=== PATIENT | female | born 1970 | race Caucasian/White ===

== ENCOUNTER 2017-06-12 17:15 | Inpatient (IN) | payer OTHER ==
[~2017-06-12] VITALS: Ht 175.3 cm; Wt 140.0 kg
[~2017-06-12 17:15] MED LIST: ATIV1TAB7 PO; BENZ5TA PO; CELE10TA PO; CELE40TA PO; HYDR10T PO; NO HOME MEDS; RISP1TAB3 PO; THIO10TA PO; TRAZ-136 PO; TRAZ50TA2 PO
[2017-06-12] MEDS ORDERED: VRAY4.5C PO (17:38)
[2017-06-12] MEDS ORDERED: QUET5TAB PO (17:38)
[2017-06-12 18:56] LABS: MEAN CORPUSCULAR HEMOGLOBIN 30.2 pg (27.0-33.0); MEAN CORPUSCULAR VOLUME 91.4 fl (80.0-96.0); RED CELL DISTRIBUTION WIDTH 13.7 % (11.5-14.5); WHITE BLOOD COUNT 11.1 10^3/uL (4.0-10.0)
[2017-06-12 19:34] LABS: ALBUMIN 3.4 GM/DL (3.2-5.2); ALBUMIN/GLOBULIN RATIO 0.85 (1.00-1.93); ALKALINE PHOSPHATASE 117 U/L (45-117); ALT/SGPT 27 U/L (12-78); ANION GAP 7 MEQ/L (8-16); AST/SGOT 18 U/L (15-37); BILIRUBIN,DIRECT < 0.1 MG/DL (0.0-0.2); BILIRUBIN,TOTAL 0.3 MG/DL (0.2-1.0); BLOOD UREA NITROGEN 13 MG/DL (7-18); CALCIUM LEVEL 9.1 MG/DL (8.5-10.1); CARBON DIOXIDE LEVEL 26 MEQ/L (21-32); CHLORIDE LEVEL 106 MEQ/L (98-107); CREATININE FOR GFR 0.65 MG/DL (0.55-1.02); GLOMERULAR FILTRATION RATE > 60.0 (>58); GLUCOSE, FASTING 82 MG/DL (70-105); SODIUM LEVEL 139 MEQ/L (136-145); TOTAL PROTEIN 7.4 GM/DL (6.4-8.2)
[2017-06-12 19:45] LABS: METHADONE URINE NEGATIVE (NEGATIVE)
[2017-06-12] MEDS ORDERED: traZODone 50 MG TAB PO PRN (20:15)
[2017-06-12] MEDS ORDERED: ACETAMINOPHEN TAB 650MG DOSE (2X325MG) PO PRN (20:15)
[2017-06-12] MEDS ORDERED: MOM 30ML SUSPENSION UDC PO PRN (20:15)
[2017-06-12] MEDS ORDERED: MAALOX 30 ML SUSP *UDC PO PRN (20:15)
[2017-06-12] MEDS: PALIPERIDONE 3 MG ER TAB (INVEGA) PO SCH (21:00)
[2017-06-12] MEDS ORDERED: BENZ2TAB5 PO (21:23)
[2017-06-12] MEDS ORDERED: RISP2TAB3 PO ×2 (21:23)
[2017-06-12 21:51] VITALS: BP 117/86
[2017-06-12] MEDS ORDERED: QUEtiapine FUMARATE 25 MG TAB PO PRN (22:30)
[2017-06-12] MEDS: risperiDONE 2 MG TAB PO SCH (22:41)
[2017-06-12] MEDS: BENZTROPINE 2 MG TAB PO SCH (22:41)
[2017-06-12] MEDS: traZODone 100 MG TAB PO SCH (22:42)
[2017-06-12] MEDS: CitaloPRAM (CeleXA) 20 MG TAB PO SCH (22:42)
[2017-06-13 06:23] VITALS: BP 103/56
[2017-06-13] MEDS: BENZTROPINE 2 MG TAB PO SCH ×2 (08:38→21:38)
[2017-06-13] MEDS: risperiDONE 1 MG TAB PO SCH (08:38)
[2017-06-13] MEDS: NICOTINE 21MG/24HR 1 EA TRANSDERMAL TD SCH (08:38)
--- NOTE | 2017-06-13 08:55 | MHHPEPDOC ---
[facility] History & Physical History and Physical DATE OF ADMISSION: Jun 12, 2017 at 20:09 LEGAL STATUS AT ADMISSION: 9.39 CHIEF COMPLAINT: "I've been doing really well. I haven't been here in 4 years". Pt was last admitted in 2014. HISTORY OF THE PRESENT ILLNESS: Patient is a 46-year-old female, who has outpatient follow up in [facility]. She has been missing appointments and her therapist called in a pickle pumper order for her. In the ED she admits to hearing voices with potential suicidal thoughts (she admits to "sort of"). The voices are telling her she is the devil. She admits to being off her medication for several months and also commented, "I need to get on my meds because it is all starting again". Unfortunately our Pharmacy does not carry her primary SGA which is Vralyar (cariprazine). We will have to substitute another SGA until she is discharged. Pt has a 24 yo daughter and a 16 yo daughter. The pt lives with them as the 24 yo has custody of the 16 yo. Pt had prior admissions here in September of 2013 and July of 2015. Was able to be stabilized. Long h/o noncompliance. PSYCHIATRIC REVIEW OF SYSTEMS: Affective: calm Anxiety: mild Trauma: some pushing between her and BF but not significant Domestic violence. No sexual abuse. Psychosis: auditory hallucinations, sees floating things that are light and dark. Personally: cooperative PAST PSYCHIATRIC HISTORY: Prior Psychiatric Disorder: 3 admission to [facility]. Outpatient Treatment: [facility] Suicidal/Self injurious: none noted in prior admissions Psychotropic Medication History: Vraylar, risperidone, Seroquel, Celexa ALLERGIES: Please see below. FAMILY PSYCHIATRIC HISTORY: brother with psychiatric history of unknown type and substance abuse. Father-alcoholism, but achieved sobriety, Great Grandfather committed suicide but she does not have anymore knowledge of this event. SOCIAL HISTORY: Early Relations/development: raised by both parents in [place]. Enjoyed siblings and rode their bikes to [employer]. Happy Childhood. 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 Denies drug addiction, some experimentation when younger with marijuana. Daily smoker of tobacco products. PAST MEDICAL/SURGICAL HISTORY: History of ovarian cyst History of gestational diabetes PSHX: Tubal ligation Left knee surgery VITAL SIGNS: Temperature 98, pulse 82, respiratory rate 20, blood pressure 103/ 56 , pulse oximetry 97 % on room air. MENTAL STATUS EXAMINATION: General appearance: Patient is a 46-year old female, who is large in stature, obese, long light colored hair, disheveled, wearing hospital attire, cooperative , good eye contact Speech: spontaneous Thought processes: mostly linear, somewhat disjointed Thought content: appropriate, bothered by bad dreams Abstract reasoning and computation: fair Description of associations: good Description of abnormal or psychotic thoughts: auditory hallucinations, some visual hallucinations earlier in the day, no thoughts to harm self but is at risk due to psychosis. Judgment: poor Insight: poor Orientation: oriented to person and place Recent and remote memory: fair Attention span and concentration: fair Fund of knowledge: impaired Mood: anxious Affect: congruent DIAGNOSES: 1. paranoid schizophrenia 2. r/o Bipolar disorder 3. r/o MDD with psychotic features 4. Substance use disorder with sustained sobriety. ASSESSMENT: Pt admits to noncompliance and is agreeable to a trial of Invega Sustenna with the goal of transitioning to Invega Trinza after 4 Sustenna injections. Pt educated on difficulty in managing MT by stopping meds. Told this will not make the illness or better. In fact it can make the disorder more difficult to treat if the brain is exposed to meds and then meds are withdrawn and this happens over and over. She agrees it must be treated. Pt enjoys her job. She is proud of her daughters. She feels loved by her family. She states she is feeling better today and believes that sleep has been helpful. She reports her "bad dreams" keep her from sleeping. PROBLEM LIST: 1. altered thoughts and perceptions 2. depression 3.noncompliance INITIAL TREATMENT PLAN: 1. Patient was admitted on a 9.39 2. Complete history was obtained. 3. With patients permission, family will be contacted and database will be expanded. 4. Patients medication regimen will be reviewed and changed accordingly. 5. Patient will be provided with protected environment. 6. Patient will be treated with individual, group, and milieu therapies. 7. Patient will receive supportive psych-education. 8. Discharge planning will commence immediately. 9. Outpatient follow-up treatment will be strongly recommended. 10. The initial treatment plan will focus initially on: * see problem list ESTIMATED LENGTH OF STAY: 7-10 DAYS. TIME SPENT COUNSELING AND COORDINATING INITIAL CARE: 50 minutes. Plan: Invega Sustenna, prazosin for nightmares, prn meds for EPS and Akathesia , anxiety meds prn. Hope to give first injection tomorrow, 2nd injection Sunday with discharge next week. Pt is already asking about discharge. Laboratory Data 24H Labs Laboratory Tests 2 06/12/17 18:33: Urine Amphetamines Screen NEGATIVE, Urine Benzodiazepines Screen NEGATIVE, Urine Opiates Screen NEGATIVE, Urine Methadone Screen NEGATIVE, Urine Barbiturates Screen NEGATIVE, Urine Phencyclidine Screen NEGATIVE, Urine Cocaine Metabolite Screen NEGATIVE, Urine Cannabinoids Screen NEGATIVE 06/12/17 18:45: Anion Gap 7L, Glomerular Filtration Rate > 60.0, Calcium Level 9.1, Aspartate Amino Transf (AST/SGOT) 18, Alanine Aminotransferase (ALT/SGPT) 27, Alkaline Phosphatase 117, Total Bilirubin 0.3, Direct Bilirubin < 0.1, Total Protein 7.4 , Albumin 3.4, Albumin/Globulin Ratio 0.85L, Thyroid Stimulating Hormone (TSH) 0.617, Salicylates Level 5.8, Acetaminophen Level < 2.0L, Ethyl Alcohol Level < 0.003 CBC/BMP Laboratory Tests 06/12/17 18:45 Red Blood Count 5.00, Mean Corpuscular Volume 91.4, Mean Corpuscular Hemoglobin 30.2, Mean Corpuscular Hemoglobin Concent 33.0, Red Cell Distribution Width 13.7 Medications Scheduled (Vraylar) 4.5 Mg Cap, 4.5 MG PO QHS, (Reported) (Risperidone) 2 Mg Tab, 1 MG PO DAILY, (Reported) (Risperidone) 2 Mg Tab, 2 MG PO QHS, (Reported) Benztropine Mesylate (Benztropine Mesylate) 2 Mg Tab, 2 MG PO BID, (Reported) Citalopram Hydrobromide (Celexa) 40 Mg Tab, 40 MG PO QHS, (Reported) Scheduled PRN Quetiapine Fumerate (Quetiapine Fumarate) 50 Mg Tab, 25 MG PO QHS PRN for ANXIETY/AGITATION, (Reported) Trazodone HCl (Trazodone HCl) 100 Mg Tab, 100 MG PO QHS PRN for SLEEP, (Reported ) Allergies Coded Allergies: No Known Allergies (Unverified , 04/19/13) Any Reynolds Jun 13, 2017 08:55
--- NOTE | 2017-06-13 09:30 | HPEPDOC ---
[facility] Medical History & Physical Date of Admission Jun 12, 2017 History and Physical PCP: Dr Alatorre ATTENDING: Dr. Ramon Miles HPI: 46yoF admitted to [facility] for unspecified psychotic disorder, being medically examined today. No acute medical complaints today. Denies any fevers, chills, weakness, fatigue, ARREOLA, CP, SOB, cough, palpitations, abdominal pain, N/V/D or changes in bowel or bladder habits. 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 ROS: As noted in HPI, otherwise 11pt ROS of systems reviewed and remarkable only for LMP unknown. PE: GEN: 46yoF, appears stated age. Well-nourished, well developed. No acute distress. Alert and oriented x 3. Pleasant, interactive. HEENT: Normocephalic, atraumatic. Pupils are equal, round, and reactive to light. Extraocular movements are intact. No nystagmus appreciated. Sclera are nonicteric. Conjunctiva without injection. Nose midline. Nasal turbinates without bogginess. EACs both patent BL. TMs both visualized and clinton with good cone of light, no bulging or erythema. No facial asymmetry. Moist mucous membranes. Dentition fair. Pharynx pink and moist, no cobblestoning. Neck supple , trachea midline. No lymphadenopathy or thyromegaly appreciated. CHEST: Regular rate and rhythm, +S1, +S2 LUNGS: Clear to auscultation bilaterally. No wheezes, rales, or rhonchi. Breathing appears symmetric and easy. Patient is speaking in full sentences. No accessory muscle use. ABD: Round, soft, non-tender, non-distended. +Bowel sounds throughout. No rebound or guarding. No costovertebral angle tenderness. EXT: Pulses 2+ bilaterally dorsalis pedis and radial. No lower extremity edema appreciated. SKIN: [place], dry, warm. Capillary refill <2sec. No rashes. NEURO: Alert and oriented x 3. Cranial nerves III-XII are intact. No focal deficits appreciated. EKG: pending. A&P: 46yoF admitted to [facility] for unspecified psychotic disorder 1. Psych. Plan per Psychiatry. Obtain baseline EKG to assure the safety of psychiatric medications as they can prolong the QT interval. Check UA/urine culture. 2. Nicotine dependence. Patch available. 3. Follow up with PCP on discharge. 4. Leukocytosis. Patient is afebrile. Asymptomatic. Recheck CBC in a.m. 5. Add Hcg to admission labs. 6. Staff member Padma GAYLE present throughout exam. Vital Signs Vital Signs Date Time Temp Pulse Resp B/P (MAP) Pulse Ox O2 Delivery O2 Flow Rate FiO2 06/13/17 06:23 98.0 82 20 103/56 (72) 06/12/17 21:51 Room Air 06/12/17 21:24 97 Laboratory Data Labs 24H Laboratory Tests 2 06/12/17 18:33: Urine Amphetamines Screen NEGATIVE, Urine Benzodiazepines Screen NEGATIVE, Urine Opiates Screen NEGATIVE, Urine Methadone Screen NEGATIVE, Urine Barbiturates Screen NEGATIVE, Urine Phencyclidine Screen NEGATIVE, Urine Cocaine Metabolite Screen NEGATIVE, Urine Cannabinoids Screen NEGATIVE 06/12/17 18:45: Anion Gap 7L, Glomerular Filtration Rate > 60.0, Calcium Level 9.1, Aspartate Amino Transf (AST/SGOT) 18, Alanine Aminotransferase (ALT/SGPT) 27, Alkaline Phosphatase 117, Total Bilirubin 0.3, Direct Bilirubin < 0.1, Total Protein 7.4 , Albumin 3.4, Albumin/Globulin Ratio 0.85L, Thyroid Stimulating Hormone (TSH) 0.617, Salicylates Level 5.8, Acetaminophen Level < 2.0L, Ethyl Alcohol Level < 0.003 CBC/BMP Laboratory Tests 06/12/17 18:45 Red Blood Count 5.00, Mean Corpuscular Volume 91.4, Mean Corpuscular Hemoglobin 30.2, Mean Corpuscular Hemoglobin Concent 33.0, Red Cell Distribution Width 13.7 Home Medications Scheduled (Vraylar) 4.5 Mg Cap, 4.5 MG PO QHS (Risperidone) 2 Mg Tab, 1 MG PO DAILY (Risperidone) 2 Mg Tab, 2 MG PO QHS Benztropine Mesylate (Benztropine Mesylate) 2 Mg Tab, 2 MG PO BID Citalopram Hydrobromide (Celexa) 40 Mg Tab, 40 MG PO QHS Scheduled PRN Quetiapine Fumerate (Quetiapine Fumarate) 50 Mg Tab, 25 MG PO QHS PRN for ANXIETY/AGITATION Trazodone HCl (Trazodone HCl) 100 Mg Tab, 100 MG PO QHS PRN for SLEEP Allergies Coded Allergies: No Known Allergies (Unverified , 04/19/13) Evelyn Ellis Jun 13, 2017 09:30
[2017-06-13 11:00] LABS: CONTROL LINE HCG INT CTR LINE PRESENT
[2017-06-13 18:56] VITALS: BP 96/59
--- NOTE | 2017-06-13 21:05 | ECGEPIP ---
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
[2017-06-13] MEDS: PALIPERIDONE 3 MG ER TAB (INVEGA) PO SCH (21:38)
[2017-06-13] MEDS: CitaloPRAM (CeleXA) 20 MG TAB PO SCH (21:38)
[2017-06-13] MEDS: risperiDONE 2 MG TAB PO SCH (21:38)
[2017-06-14 07:06] VITALS: BP 130/60
[2017-06-14 07:38] LABS: BASO # 0.1 10^3/uL (0.0-0.2); BASO % 0.6 % (0.0-1.0); EOS # 0.2 10^3/uL (0.0-0.50); IMMATURE GRANULOCYTE % 0.2 % (0-0); LYMPH # 3.9 10^3/uL (1.5-4.5); LYMPH % 46.4 % (24.0-44.0); MEAN CORPUSCULAR HEMOGLOBIN 30.1 pg (27.0-33.0); MEAN CORPUSCULAR HGB CONC 32.5 g/dl (32.0-36.5); MEAN CORPUSCULAR VOLUME 92.6 fl (80.0-96.0); MONO # 0.5 10^3/uL (0.0-0.8); MONO % 6.2 % (0.0-5.0); NEUTROPHILS # 3.8 10^3/uL (1.8-7.7); NEUTROPHILS % 44.6 % (36.0-66.0); PLATELET COUNT, AUTOMATED 275 10^3/uL (150-450); RED CELL DISTRIBUTION WIDTH 13.7 % (11.5-14.5); WHITE BLOOD COUNT 8.5 10^3/uL (4.0-10.0)
[2017-06-14] MEDS: risperiDONE 1 MG TAB PO SCH (08:04)
[2017-06-14] MEDS: NICOTINE 21MG/24HR 1 EA TRANSDERMAL TD SCH (08:04)
[2017-06-14] MEDS: BENZTROPINE 2 MG TAB PO SCH ×2 (08:04→20:06)
[2017-06-14] MEDS ORDERED: PALIPERIDONE PALMITATE 234 MG/1.5 ML INJ (INVEGA SUSTENNA)(J2426) IM ONE (09:00)
--- NOTE | 2017-06-14 13:18 | MHIPNPDOC ---
[facility] Progress Note Progress Note DATE OF SERVICE: 06/14/17 HISTORY: day 3 of admission for decompensation of schizophrenia related to non- compliance with medication. VITAL SIGNS: See below. 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 MENTAL STATUS EXAMINATION: General appearance: Patient is a 46-year old female, who is large in stature, obese, long light colored hair, disheveled, wearing hospital attire, cooperative , good eye contact Speech: spontaneous Thought processes: mostly linear, somewhat disjointed Thought content: appropriate, bothered by bad dreams Abstract reasoning and computation: fair Description of associations: good Description of abnormal or psychotic thoughts: auditory hallucinations, some visual hallucinations earlier in the day, no thoughts to harm self but is at risk due to psychosis. Judgment: poor Insight: poor Orientation: oriented to person and place Recent and remote memory: fair Attention span and concentration: fair Fund of knowledge: impaired Mood: anxious Affect: congruent DIAGNOSES: 1. paranoid schizophrenia 2. Substance use disorder with sustained sobriety. ASSESSMENT:pt attended treatment planning and is aware of treatment goals and in agreement with objectives. She is anxious about discharge and was informed that Sunday is likely provided she does not have any difficulty with the Sustenna Injection. Currently she reports less occurrence of auditory hallucinations. She feels her mood is improving and overall she feels better since resuming treatment via medication. pt will be provided a letter for work upon discharge. We anticipate that as next week. Would like a family meeting if Mother/daughters or other family members can come in. MANAGEMENT PLAN: pt advised meds available as needed for side effects related to antipsychotic medication. Risperidone and oral Invega discontinued. EKG reviewed. Left confidential voice mail for December Diles at [facility] regarding the Injection and change attendant to Trinza. TIME SPENT: 25 minutes. Vital Signs Vital Signs Date Time Temp Pulse Resp B/P (MAP) Pulse Ox O2 Delivery O2 Flow Rate FiO2 06/14/17 07:06 97.8 89 18 130/60 (83) Room Air 06/12/17 21:24 97 Laboratory Data 24H Labs Laboratory Tests 2 06/13/17 16:10: Urine Appearance CLOUDYH, Urine Color YELLOW, Urine pH 7.0, Urine Specific [place] 1.014, Urine Protein NEGATIVE, Urine Glucose (UA) NEGATIVE, Urine Ketones NEGATIVE, Urine Urobilinogen 0.2, Urine Bilirubin NEGATIVE, Urine Leukocyte Esterase NEGATIVE, Urine Blood NEGATIVE, Urine Nitrite NEGATIVE, Urine WBC (Auto) 1, Urine RBC (Auto) 1, Urine Hyaline Casts (Auto) 0, Urine Bacteria (Auto) 1+H, Urine Squamous Epithelial Cells 9, Urine Amorphous Sediment SMALLH, Urine Mucus (Auto) SMALL, Urine Sperm (Auto) 06/14/17 07:29: Immature Granulocyte % (Auto) 0.2H, White Blood Count 8.5, Red Blood Count 4.72 , Hemoglobin 14.2, Hematocrit 43.7, Mean Corpuscular Volume 92.6, Mean Corpuscular Hemoglobin 30.1, Mean Corpuscular Hemoglobin Concent 32.5, Red Cell Distribution Width 13.7, Platelet Count 275, Neutrophils (%) (Auto) 44.6, Lymphocytes (%) (Auto) 46.4H, Monocytes (%) (Auto) 6.2H, Eosinophils (%) (Auto) 2.0, Basophils (%) (Auto) 0.6, Neutrophils # (Auto) 3.8, Lymphocytes # (Auto) 3.9, Monocytes # (Auto) 0.5, Eosinophils # (Auto) 0.2, Basophils # (Auto) 0.1, Immature Granulocyte # (Auto) 0.0, Nucleated Red Blood Cells % (auto) 0.0 CBC/BMP Laboratory Tests 06/14/17 07:29 Red Blood Count 4.72, Mean Corpuscular Volume 92.6, Mean Corpuscular Hemoglobin 30.1, Mean Corpuscular Hemoglobin Concent 32.5, Red Cell Distribution Width 13.7 , Neutrophils (%) (Auto) 44.6, Lymphocytes (%) (Auto) 46.4 H, Monocytes (%) ( Auto) 6.2 H, Eosinophils (%) (Auto) 2.0, Basophils (%) (Auto) 0.6, Neutrophils # (Auto) 3.8, Lymphocytes # (Auto) 3.9, Monocytes # (Auto) 0.5, Eosinophils # ( Auto) 0.2, Basophils # (Auto) 0.1 Current Medications Current Medications Acetaminophen (Tylenol Tab) 650 mg Q6HP PRN PO HEADACHE or DISCOMFORT; Start 06/12/17 at 20:15; Stop 07/12/17 at 20:14 Al Hydrox/Mg Hydrox/Simethicone (Mylanta) 30 ml Q4HP PRN PO HEARTBURN/ INDIGESTION; Start 06/12/17 at 20:15; Stop 07/12/17 at 20:14 Benztropine Mesylate (Cogentin) 2 mg BID PO Last administered on 06/14/17 08: 04; Start 06/12/17 at 21:00; Stop 07/12/17 at 20:59 Citalopram Hydrobromide (CeleXA) 40 mg QHS PO Last administered on 06/13/17 21 :38; Start 06/12/17 at 21:00; Stop 07/12/17 at 20:59 Home Med (Med Rec Complete!) ASDIRECTED XX ; Start 06/12/17 at 21:30; Stop 06/12/17 at 21:30; Status DC Magnesium Hydroxide (Milk Of Magnesia) 30 ml DAILYPRN PRN PO CONSTIPATION; Start 06/12/17 at 20:15; Stop 07/12/17 at 20:14 Nicotine (Nicoderm Cq 21mg) 1 patch DAILY TD Last administered on 06/14/17 08: 04; Start 06/13/17 at 09:00; Stop 07/13/17 at 08:59 Paliperidone (Invega) 3 mg QHS PO Last administered on 06/13/17 21:38; Start 06/12/17 at 21:00; Stop 07/12/17 at 20:59 Quetiapine Fumarate (SEROquel) 25 mg QHSP PRN PO ANXIETY/AGITATION; Start 06/12 at 22:30; Stop 07/12/17 at 22:29 Risperidone (RisperDAL) 1 mg DAILY PO Last administered on 06/14/17 08:04; Start 06/13/17 at 09:00; Stop 07/13/17 at 08:59 Risperidone (RisperDAL) 2 mg QHS PO Last administered on 06/13/17 21:38; Start 06/12/17 at 21:00; Stop 07/12/17 at 20:59 Trazodone HCl (Desyrel) 50 mg QHSP PRN PO INSOMNIA; Start 06/12/17 at 20:15; Stop 07/12/17 at 20:14; Status Cancel Trazodone HCl (Desyrel) 100 mg QHSP PO Last administered on 06/12/17 22:42; Start 06/12/17 at 22:30; Stop 07/12/17 at 22:29 Allergies Coded Allergies: No Known Allergies (Unverified , 04/19/13) Any Reynolds Jun 14, 2017 13:18
[2017-06-14 18:00] VITALS: BP 110/70
[2017-06-14] MEDS: CitaloPRAM (CeleXA) 20 MG TAB PO SCH (20:06)
[2017-06-14] MEDS: PRAZOSIN 1 MG CAP PO SCH (20:06)
[2017-06-15 06:42] VITALS: BP 129/92
[2017-06-15] MEDS: BENZTROPINE 2 MG TAB PO SCH ×2 (08:54→21:39)
[2017-06-15] MEDS: NICOTINE 21MG/24HR 1 EA TRANSDERMAL TD SCH (08:56)
--- NOTE | 2017-06-15 14:02 | MHIPNPDOC ---
[facility] Progress Note Progress Note DATE OF SERVICE: 06/15/17 HISTORY: day 4 of admission for decompensation with schizophrenia/nonadherence to tx. VITAL SIGNS: See below. NEW TEST RESULTS: na CURRENT MEDICATIONS: See below. MENTAL STATUS EXAMINATION: General appearance: Patient is a 46-year old female, who is large in stature, obese, long light colored hair, disheveled, wearing hospital attire, cooperative , good eye contact Speech: spontaneous Thought processes: goal directed Thought content: appropriate, Abstract reasoning and computation: good Description of associations: good Description of abnormal or psychotic thoughts: auditory hallucinations, some visual hallucinations earlier in the day, no thoughts to harm self but is at risk due to psychosis. Judgment: fair Insight: fair Orientation: oriented to person and place Recent and remote memory: intact Attention span and concentration: good Fund of knowledge: impaired Mood: euthymic Affect: congruent DIAGNOSES: 1. paranoid schizophrenia 2. r/o Bipolar disorder 3. r/o MDD with psychotic features 4. Substance use disorder with sustained sobriety. ASSESSMENT:Lien is very nice but continues to display a flat affect. She is anticipating discharge which we hope will be next week . One more Invega Sustenna injection and she can go. She has attended some groups. She is looking forward to returning to work and will need a note when she leaves here to cover her absence. Pt reports good sleep and feeling much better. Voices and visions are far less than on admission. Over all mood is brighter and thoughts are more organized. Pt reports dreams were less vivid last night on Prazosin. Will continue to monitor. Pt is off all oral antipsychotics. MANAGEMENT PLAN: family meeting on Sunday with discharge to follow. Will return to [facility]. Her next Invega shot after discharge will be 156 mg . Will need prior authorization started before discharge. TIME SPENT: 15 minutes. Vital Signs Vital Signs Date Time Temp Pulse Resp B/P (MAP) Pulse Ox O2 Delivery O2 Flow Rate FiO2 06/15/17 06:42 96.5 95 16 129/92 (104) Room Air 06/12/17 21:24 97 Current Medications Current Medications Acetaminophen (Tylenol Tab) 650 mg Q6HP PRN PO HEADACHE or DISCOMFORT; Start 06/12/17 at 20:15; Stop 07/12/17 at 20:14 Al Hydrox/Mg Hydrox/Simethicone (Mylanta) 30 ml Q4HP PRN PO HEARTBURN/ INDIGESTION; Start 06/12/17 at 20:15; Stop 07/12/17 at 20:14 Benztropine Mesylate (Cogentin) 2 mg BID PO Last administered on 06/15/17 08: 54; Start 06/12/17 at 21:00; Stop 07/12/17 at 20:59 Citalopram Hydrobromide (CeleXA) 40 mg QHS PO Last administered on 06/14/17 20 :06; Start 06/12/17 at 21:00; Stop 07/12/17 at 20:59 Home Med (Med Rec Complete!) ASDIRECTED XX ; Start 06/12/17 at 21:30; Stop 06/12/17 at 21:30; Status DC Magnesium Hydroxide (Milk Of Magnesia) 30 ml DAILYPRN PRN PO CONSTIPATION Last administered on 06/14/17 18:26; Start 06/12/17 at 20:15; Stop 07/12/17 at 20:14 Nicotine (Nicoderm Cq 21mg) 1 patch DAILY TD Last administered on 06/15/17 08: 56; Start 06/13/17 at 09:00; Stop 07/13/17 at 08:59 Paliperidone (Invega) 3 mg QHS PO Last administered on 06/13/17 21:38; Start 06/12/17 at 21:00; Stop 06/14/17 at 13:13; Status DC Paliperidone Palmitate (Invega Sustenna) 156 mg Q30D@1100 IM ; Start 06/18/17 at 11:00; Stop 07/18/17 at 10:59 Prazosin HCl (Minipress) 1 mg QHS PO Last administered on 06/14/17 20:06; Start 06/14/17 at 21:00; Stop 07/14/17 at 20:59 Quetiapine Fumarate (SEROquel) 25 mg QHSP PRN PO ANXIETY/AGITATION; Start 06/12 at 22:30; Stop 07/12/17 at 22:29 Risperidone (RisperDAL) 1 mg DAILY PO Last administered on 06/14/17 08:04; Start 06/13/17 at 09:00; Stop 10/5/17 at 13:13; Status DC Risperidone (RisperDAL) 2 mg QHS PO Last administered on 06/13/17 21:38; Start 06/12/17 at 21:00; Stop 06/14/17 at 13:13; Status DC Trazodone HCl (Desyrel) 50 mg QHSP PRN PO INSOMNIA; Start 06/12/17 at 20:15; Stop 07/12/17 at 20:14; Status Cancel Trazodone HCl (Desyrel) 100 mg QHSP PO Last administered on 06/12/17 22:42; Start 06/12/17 at 22:30; Stop 07/12/17 at 22:29 Allergies Coded Allergies: No Known Allergies (Unverified , 04/19/13) Any Reynolds Jun 15, 2017 14:02
[2017-06-15 18:00] VITALS: BP 114/60
[2017-06-15] MEDS: PRAZOSIN 1 MG CAP PO SCH (21:39)
[2017-06-15] MEDS: CitaloPRAM (CeleXA) 20 MG TAB PO SCH (21:39)
[2017-06-16 07:01] VITALS: BP 100/63
[2017-06-16] MEDS: BENZTROPINE 2 MG TAB PO SCH ×2 (08:20→21:45)
[2017-06-16] MEDS: NICOTINE 21MG/24HR 1 EA TRANSDERMAL TD SCH (08:20)
--- NOTE | 2017-06-16 15:44 | MHIPNPDOC ---
[facility] Progress Note Progress Note DATE OF SERVICE: 06/16/17 HISTORY: . 46 years old female with history of schizophrenia that was admitted due to symptoms of psychosis in the context of noncompliance of medications. Patient is not interacting much with peers. Her affect is blunted, however, denied any symptoms of psychosis, any side effects of medications. Interview was limited VITAL SIGNS: See below. NEW TEST RESULTS: . CURRENT MEDICATIONS: See below. MENTAL STATUS EXAMINATION: General appearance: Patient is a 46-year old female, who is large in stature, obese, long light colored hair, disheveled, wearing hospital attire, somewhat cooperative, good eye contact Speech: spontaneous Thought processes: goal directed Thought content: appropriate, Abstract reasoning and computation: good Description of associations: good Description of abnormal or psychotic thoughts: none reported or elicited Judgment: fair Insight: fair Orientation: oriented to person and place Recent and remote memory: intact Attention span and concentration: good Fund of knowledge: impaired Mood: "ok" Affect: blunted almost flat DIAGNOSES: 1. paranoid schizophrenia 2. r/o Bipolar disorder 3. r/o MDD with psychotic features 4. Substance use disorder with sustained sobriety. MANAGEMENT PLAN: . continue current medications Supportive therapy, milieu therapy Discharge plan as per primary team TIME SPENT: 25 minutes. Vital Signs Vital Signs Date Time Temp Pulse Resp B/P (MAP) Pulse Ox O2 Delivery O2 Flow Rate FiO2 06/16/17 07:01 97.4 98 18 100/63 (75) 06/15/17 06:42 Room Air 06/12/17 21:24 97 Current Medications Current Medications Acetaminophen (Tylenol Tab) 650 mg Q6HP PRN PO HEADACHE or DISCOMFORT; Start 06/12/17 at 20:15; Stop 07/12/17 at 20:14 Al Hydrox/Mg Hydrox/Simethicone (Mylanta) 30 ml Q4HP PRN PO HEARTBURN/ INDIGESTION; Start 06/12/17 at 20:15; Stop 07/12/17 at 20:14 Benztropine Mesylate (Cogentin) 2 mg BID PO Last administered on 06/16/17 08: 20; Start 06/12/17 at 21:00; Stop 07/12/17 at 20:59 Citalopram Hydrobromide (CeleXA) 40 mg QHS PO Last administered on 06/15/17 21 :39; Start 06/12/17 at 21:00; Stop 07/12/17 at 20:59 Home Med (Med Rec Complete!) ASDIRECTED XX ; Start 06/12/17 at 21:30; Stop 06/12/17 at 21:30; Status DC Magnesium Hydroxide (Milk Of Magnesia) 30 ml DAILYPRN PRN PO CONSTIPATION Last administered on 06/14/17 18:26; Start 06/12/17 at 20:15; Stop 07/12/17 at 20:14 Nicotine (Nicoderm Cq 21mg) 1 patch DAILY TD Last administered on 06/16/17 08: 20; Start 06/13/17 at 09:00; Stop 07/13/17 at 08:59 Paliperidone (Invega) 3 mg QHS PO Last administered on 06/13/17 21:38; Start 06/12/17 at 21:00; Stop 06/14/17 at 13:13; Status DC Paliperidone Palmitate (Invega Sustenna) 156 mg Q30D@1100 IM ; Start 06/18/17 at 11:00; Stop 07/18/17 at 10:59 Prazosin HCl (Minipress) 1 mg QHS PO Last administered on 06/15/17 21:39; Start 06/14/17 at 21:00; Stop 07/14/17 at 20:59 Quetiapine Fumarate (SEROquel) 25 mg QHSP PRN PO ANXIETY/AGITATION; Start 06/12 at 22:30; Stop 07/12/17 at 22:29 Risperidone (RisperDAL) 1 mg DAILY PO Last administered on 06/14/17 08:04; Start 06/13/17 at 09:00; Stop 06/14/17 at 13:13; Status DC Risperidone (RisperDAL) 2 mg QHS PO Last administered on 06/13/17 21:38; Start 06/12/17 at 21:00; Stop 06/14/17 at 13:13; Status DC Trazodone HCl (Desyrel) 50 mg QHSP PRN PO INSOMNIA; Start 06/12/17 at 20:15; Stop 07/12/17 at 20:14; Status Cancel Trazodone HCl (Desyrel) 100 mg QHSP PO Last administered on 10/3/17at 22:42; Start 06/12/17 at 22:30; Stop 07/12/17 at 22:29 Allergies Coded Allergies: No Known Allergies (Unverified , 04/19/13) CYNDY RODRIGUEZ MD Jun 16, 2017 15:41
[2017-06-16] MEDS: traZODone 100 MG TAB PO SCH (21:45)
[2017-06-16] MEDS: PRAZOSIN 1 MG CAP PO SCH (21:46)
[2017-06-16] MEDS: CitaloPRAM (CeleXA) 20 MG TAB PO SCH (21:46)
[2017-06-17 06:37] VITALS: BP 132/75
[2017-06-17] MEDS: BENZTROPINE 2 MG TAB PO SCH ×2 (09:23→20:53)
[2017-06-17] MEDS: NICOTINE 21MG/24HR 1 EA TRANSDERMAL TD SCH (09:23)
[2017-06-17 18:00] VITALS: BP 98/59
[2017-06-17 20:53] VITALS: BP 125/74
[2017-06-17] MEDS: CitaloPRAM (CeleXA) 20 MG TAB PO SCH (20:53)
[2017-06-17] MEDS: PRAZOSIN 1 MG CAP PO SCH (20:53)
[2017-06-18 07:13] VITALS: BP 117/58
[2017-06-18] MEDS: NICOTINE 21MG/24HR 1 EA TRANSDERMAL TD SCH (08:48)
[2017-06-18] MEDS: BENZTROPINE 2 MG TAB PO SCH (08:48)
[2017-06-18] MEDS ORDERED: RISP-4 PO (09:00)
[2017-06-18] MEDS ORDERED: TRAZ10TA PO (09:00)
[2017-06-18] MEDS ORDERED: MINI1CAP PO (09:00)
[2017-06-18] MEDS ORDERED: PALIPERIDONE PALMITATE 156 MG/1ML INJ(INVEGA SUSTENNA)(J2426) IM SCH ×2 (09:00→11:00)
[2017-06-18] MEDS ORDERED: risperiDONE 0.25 MG TAB PO PRN ×2 (09:15→11:30)
[2017-06-18] MEDS ORDERED: RISP0.2516 PO (09:19)
[2017-06-18] MEDS ORDERED: NICO21PAT TD (11:28)
--- NOTE | 2017-06-18 16:43 | MHDSPDOC ---
[facility] Discharge Summary Discharge Summary DATE OF ADMISSION: Jun 12, 2017 at 20:09 DATE OF DISCHARGE: Jun 18, 2017 at 11:00 DISCHARGE DIAGNOSES: 1. paranoid schizophrenia 2. r/o Bipolar disorder 3. r/o MDD with psychotic features 4. Substance use disorder with sustained sobriety. REASON FOR ADMISSION: Patient is a 46-year-old female, who has outpatient follow up in [facility]. She has been missing appointments and her therapist called in a pickup driver order for her. In the ED she admits to hearing voices with potential suicidal thoughts (she admits to "sort of"). The voices are telling her she is the devil. She admits to being off her medication for several months and also commented, "I need to get on my meds because it is all starting again" . Unfortunately our Pharmacy does not carry her primary SGA which is Vralyar ( cariprazine). We will have to substitute another SGA until she is discharged. Pt has a 24 yo daughter and a 16 yo daughter. The pt lives with them as the 24 yo has custody of the 16 yo. Pt had prior admissions here in September of 2013 and July of 2015. Was able to be stabilized. Long h/o noncompliance. CONSULTANTS INVOLVED: pharmacy, lab, medicine, psychiatry TREATMENT AND PROGRESS ON THE UNIT : pt accepted offer of CEDE[facility]O medication to aid with medication compliance. She was changed from Risperidone to Invega po and dose increased to 9 mg daily. following this she was given the initial injection of Invega Sustenna at 234 mg. She tolerated this will and was off the po medication for several days. She reported voices on Sunday when bid writer returned. Sge received the second dose of Invega Sustenna IM 156 mg on Sunday with po medications of risperidone if necessary due to voices. Milling Machine Set Up Operator left message last week for outpatient provider informing of med changes with goal of transitioning pt to Invega Trinza. prior authorization requested but due to length of time until injection #3 could not process for pt prior to leaving. HOSPITAL COURSE: Pt tolerated injections and was cooperative to request to attend programs. She attended as tolerated. She admitted she would frequently forget her medication and would become psychotic. She found that once on medication her thoughts were clearer and thinking was easier for her. 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 She is close with her 2 daughters and her mother all of whom are identified as supports for her. Pt had a positive response to prazosin and will continue med at discharge. pt aware to monitor for dizziness upon arising. DISCHARGE ASSESSMENT: Pt agrees to attend outpatient appts and continue with Invega injections. She plans to return to her job at the end of the week and was given a letter for work. She received education on when to use her po prn meds. Jaw movements were noted during family meeting and pt was informed the use of Cogentin can correct that. She was advised to take a dose when she arrives home. Pt informed about prn risperidone for break through voices. Pt aware she needs to dose the celexa daily for best results and not stop her medication or miss doses. Daughter attended discharge planning meeting and she and family will remind pt of Celexa. MENTAL STATUS EXAMINATION ON DISCHARGE: General appearance: Patient is a 46-year old female, who is large in stature, obese, long light colored hair, disheveled, wearing hospital attire, cooperative , good eye contact Speech: spontaneous Thought processes: goal directed Thought content: appropriate, Abstract reasoning and computation: good Description of associations: good Description of abnormal or psychotic thoughts: some auditory hallucination of less frequency and intensity remain, denies thoughts of self harm. No delusions , no tangential thinking. Judgment: fair Insight: fair Orientation: oriented to person and place Recent and remote memory: intact Attention span and concentration: good Fund of knowledge: impaired Mood: euthymic Affect: congruent MEDICATIONS ON DISCHARGE: - Invega Sustenna for bipolar disorder/schizophrenia - cogentin for eps. - risperidone for auditory hallucinations prn. -prazosin for nightmares -celexa for anxiety and depression PLAN/FOLLOWUP ARRANGEMENTS: [facility] for meds and therapy. The amount of time spent in the coordination of care for this patient was approximately 45 minutes. Vital Signs/I&Os Vital Signs Date Time Temp Pulse Resp B/P (MAP) Pulse Ox O2 Delivery O2 Flow Rate FiO2 06/18/17 07:13 98.1 82 20 117/58 (77) Room Air 06/12/17 21:24 97 Laboratory Data Microbiology Microbiology 06/13/17 Urine Culture - Final, Complete Medications Scheduled Benztropine Mesylate (Benztropine Mesylate) 2 Mg Tab, 2 MG PO BID, (Reported) Citalopram Hydrobromide (Celexa) 40 Mg Tab, 40 MG PO QHS, (Reported) Nicotine (Nicotine Transdermal Syst) 21 Mg/24 Hr Dis, 1 PATCH TD DAILY for NICOTINE WITHDRAWAL for 7 Days, #7 remove at bedtime as can cause vivid dreams. Prazosin HCl (Minipress) 1 Mg Cap, 1 MG PO QHS for nightmares for 7 Days, #7 Trazodone HCl (Trazodone HCl) 100 Mg Tab, 100 MG PO QHSP for INSOMNIA for 7 Days , #7 take only if needed for insomnia. allow 9-10 hours of sleep. Scheduled PRN Risperidone (Risperdal) 0.25 Mg Tab, 0.25 MG PO Q8HP PRN for auditory Hallucinations for 7 Days, #21 take as needed for anxiety, hallucinations q 8 hrs Trazodone HCl (Trazodone HCl) 100 Mg Tab, 100 MG PO QHS PRN for SLEEP, (Reported ) Allergies Coded Allergies: No Known Allergies (Unverified , 04/19/13) Any Reynolds Jun 18, 2017 16:43
[2017-06-18] MEDS ORDERED: risperiDONE 1 MG M-TAB PO SCH (21:00)
== END 2017-06-18 11:00 | disposition home or self-care (01) | DRG 750 ==
LOC: M ED 17:15 → M ED INP 20:09 → M PSY 21:50
PROVIDERS: ADMIT Psychiatry & Neurology Psychiatry; ATTEND Psychiatry & Neurology Psychiatry
DX: F20.0 Paranoid schizophrenia (principal); Z91.14 Patient's other noncompliance with medication regimen; E66.9 Obesity, unspecified; F17.210 Nicotine dependence, cigarettes, uncomplicated; F31.9 Bipolar disorder, unspecified

== ENCOUNTER → 2020-10-28 | Outpatient (CLI) | payer OTHER ==
[~2020-10-28] MED LIST changes: +BENZ2TAB5 PO; +MINI1CAP PO; +NICO21PAT TD; +QUET50TA3 PO; +RISP-4 PO; +RISP-9 PO; +RISP0.2516 PO; -TRAZ-136 PO; +TRAZ-257 PO; +TRAZ1TAB12 PO; +VRAY4.5C PO
--- NOTE | 2020-10-28 12:29 | PFTRPT ---
Height: 67.00 Inches Weight: 248.00 Lbs BSA: 2.22 Diagnosis: R06.00 DATE: 10/28/2020 ORDERED BY: KALEN Rouse Pre and post bronchodilator studies have excellent technical quality. Forced vital capacity is reduced. FEV1 is in proportion. Obstructive index is therefore normal. Expiratory limit of the flow-volume loop does suggest some degree of flow rate limitation. No significant bronchodilator response is identified. Total lung capacity is borderline. Residual volume is in proportion. Diffusing capacity is significantly reduced, but is appropriate for alveolar volume. Hemoglobin is acceptable at 13.8. Airway resistance and conductance are normal. IMPRESSION: Nonspecific flow rate limitation with borderline values for restriction. Please correlate clinically. MTDD
--- NOTE | 2020-10-29 07:12 | REP ---
INDICATION: OTHER NON SPECIFIC ABN FIND OF LUNG FIELD CT 1ST PFT 2ND COMPARISON: Chest x-ray dated 07/30/2019, 03/15/2020 TECHNIQUE: Axial noncontrast high-resolution images from the thoracic inlet to the upper abdomen obtained on inspiration and expiration with coronal and sagittal reformations. This CT examination was performed using the following dose reduction techniques: Automated exposure control, adjustment of mA and/or kv according to the patient's size, and use of iterative reconstruction technique. FINDINGS: Advanced diffuse bilateral primarily subpleural fibrosis noted throughout the bilateral lung silva. No focal consolidation and no obvious nodule/mass lesion identified pretracheal lymph nodes appear enlarged and measure up to 16 mm short axis diameter. No effusion. No pneumothorax. Findings are essentially unchanged on expiration and inspiration. Atherosclerotic changes to the thoracic aorta without aneurysm or dissection. Heart and pericardium are normal. Musculoskeletal structures are intact. IMPRESSION: Moderate to advanced idiopathic pulmonary fibrosis suggested. No obvious focal superimposed consolidation, nodule/mass or effusion. <Electronically signed by Esteban Rothman > 10/29/20 [id number]
== END ==
LOC: M RAD 11:36
PROVIDERS: ATTEND Physician Assistant
DX: R91.8 Other nonspecific abnormal finding of lung field (principal)

== ENCOUNTER → 2020-11-04 | Outpatient (REF) | payer OTHER ==
[2020-11-04 19:07] LABS: ALBUMIN 3.5 GM/DL (3.2-5.2); ALT/SGPT 25 U/L (12-78); BILIRUBIN,DIRECT 0.1 MG/DL (0.0-0.2); BILIRUBIN,TOTAL 0.3 MG/DL (0.2-1.0); C REACTIVE PROTEIN QUANTITATIV 1.33 MG/DL (0.00-0.30); RHEUMATOID FACTOR QUANT < 10.0 IU/ML (<15.0); TOTAL PROTEIN 7.5 GM/DL (6.4-8.2)
== END ==
LOC: M LAB REF 17:14
PROVIDERS: ATTEND Physician Assistant
DX: J84.10 Pulmonary fibrosis, unspecified (principal)

== ENCOUNTER → 2021-02-16 | Outpatient (REF) | payer OTHER ==
[2021-02-16 19:36] LABS: ALBUMIN 3.5 GM/DL (3.2-5.2); BILIRUBIN,DIRECT 0.1 MG/DL (0.0-0.2); BILIRUBIN,TOTAL 0.6 MG/DL (0.2-1.0); TOTAL PROTEIN 7.7 GM/DL (6.4-8.2)
== END ==
LOC: M LAB REF 16:57
PROVIDERS: ATTEND Internal Medicine Pulmonary Disease
DX: J84.10 Pulmonary fibrosis, unspecified (principal)

== ENCOUNTER → 2021-06-07 | Outpatient (CLI) | payer OTHER ==
[~2021-06-07] MED LIST changes: -QUET50TA3 PO; +QUET50TA4 PO
== END ==
LOC: M SLEEP HO 11:39
PROVIDERS: ATTEND Physician Assistant
DX: R40.0 Somnolence (principal)

== ENCOUNTER → 2021-07-20 | Outpatient (CLI) | payer OTHER ==
--- NOTE | 2021-07-21 14:38 | SLEEPCENT ---
DATE: 07/20/2021 ORDERED BY: Demarcus Wise Nocturnal polysomnography was performed for the titration of pressure therapy in this patient with a clinical diagnosis of obstructive sleep apnea syndrome, confirmed by home testing revealing a respiratory event index of 27.2. For testing, ResMed AirFit F20 full-face mask of medium size was used. There was 4 cm of water pressure applied to the circuit, and the lights were extinguished. There was 7 hours and 30 minutes of data reviewed. There was 408 minutes of sleep identified. Sleep latency was normal at 12 minutes. REM sleep was mildly delayed at 145 minutes. Sleep architecture did improve with optimal pressure therapy, and two REM cycles were noted. Overall sleep efficiency 91.4%. The electrocardiogram showed a sinus rhythm with an average heart rate of 75 beats per minute. Unifocal PVCs were seen. EEG showed normal waveforms for wake and sleep. Respiratory events were fully palliated with CPAP at a pressure of +12. There was some limb activity in the EMG leads. Limb movement arousal index was borderline at 5.7 IMPRESSION: Obstructive sleep apnea syndrome (G47.33). RECOMMENDATION: Nightly use of pressure therapy, 12 cm of water.
== END ==
LOC: M SLEEP 20:00
PROVIDERS: ATTEND Physician Assistant
DX: G47.33 Obstructive sleep apnea (adult) (pediatric) (principal)

== ENCOUNTER → 2021-07-20 | Outpatient (CLI) | payer OTHER ==
[2021-07-20 17:49] LABS: BASO # 0.1 10^3/uL (0.0-0.2); BASO % 0.5 % (0.0-1.0); EOS # 0.2 10^3/uL (0.0-0.5); EOS % 1.8 % (0.0-3.0); HEMATOCRIT 47.7 % (36.0-47.0); HEMOGLOBIN 15.8 g/dl (12.0-15.5); LYMPH # 4.9 10^3/uL (1.5-5.0); LYMPH % 40.7 % (24.0-44.0); MEAN CORPUSCULAR HEMOGLOBIN 30.7 pg (27.0-33.0); MEAN CORPUSCULAR HGB CONC 33.1 g/dl (32.0-36.5); MEAN CORPUSCULAR VOLUME 92.8 fl (80.0-96.0); MONO # 1.1 10^3/uL (0.0-0.8); NEUTROPHILS # 5.7 10^3/uL (1.5-8.5); NEUTROPHILS % 47.7 % (36.0-66.0); PLATELET COUNT, AUTOMATED 264 10^3/uL (150-450); RED BLOOD COUNT 5.14 10^6/uL (4.00-5.40)
[2021-07-20 18:22] LABS: ALBUMIN 3.4 GM/DL (3.2-5.2); BILIRUBIN,DIRECT 0.1 MG/DL (0.0-0.2); BILIRUBIN,TOTAL 0.4 MG/DL (0.2-1.0); TOTAL PROTEIN 7.4 GM/DL (6.4-8.2)
== END ==
LOC: M LAB 15:59
PROVIDERS: ATTEND Internal Medicine Pulmonary Disease
DX: J84.10 Pulmonary fibrosis, unspecified (principal)

== ENCOUNTER → 2022-07-03 | Outpatient (REF) | payer OTHER ==
[2022-07-03 19:05] LABS: ALBUMIN 3.5 GM/DL (3.2-5.2); BILIRUBIN,DIRECT 0.2 MG/DL (0.0-0.2); BILIRUBIN,TOTAL 0.4 MG/DL (0.2-1.0); TOTAL PROTEIN 7.8 GM/DL (6.4-8.2)
== END ==
LOC: M LAB REF 17:10
PROVIDERS: ATTEND Internal Medicine Pulmonary Disease
DX: J84.10 Pulmonary fibrosis, unspecified (principal)

== ENCOUNTER → 2022-12-27 | Outpatient (REF) | payer OTHER ==
[~2022-12-27] MED LIST changes: +BENZ2TAB48 PO; -BENZ2TAB5 PO
== END ==
LOC: M LAB REF 16:47
PROVIDERS: ATTEND Internal Medicine Pulmonary Disease
DX: J84.10 Pulmonary fibrosis, unspecified (principal)

== ENCOUNTER → 2023-01-30 | Outpatient (REF) | payer OTHER | LOC: M LAB REF 17:29 | PROVIDERS: ATTEND Internal Medicine Pulmonary Disease | DX: J84.10 Pulmonary fibrosis, unspecified (principal) ==

== ENCOUNTER → 2023-08-08 | Outpatient (REF) | payer OTHER ==
[2023-08-08 19:16] LABS: ALBUMIN 3.3 G/DL (3.2-5.2); BILIRUBIN,DIRECT 0.1 MG/DL (<0.4); BILIRUBIN,TOTAL 0.4 MG/DL (0.3-1.2); TOTAL PROTEIN 7.2 G/DL (5.7-8.2)
== END ==
LOC: M LAB REF 17:23
PROVIDERS: ATTEND Internal Medicine Pulmonary Disease
DX: J47.1 Bronchiectasis with (acute) exacerbation (principal); J84.10 Pulmonary fibrosis, unspecified

== ENCOUNTER 2023-10-09 07:14 | Day surgery (SDC) | payer OTHER ==
[~2023-10-09] VITALS: Ht 175.3 cm; Wt 90.7 kg
[~2023-10-09 07:14] MED LIST changes: +ALBU2.5V10 INH; +BENZ1TAB5 PO; +BSS IRR 500ML/OMIDRIA 4ML IRR BAG (OR ONLY) As Ordered ONE; +BUDE0.254 INH; +CEFUROXIME 1MG/0.1ML INTRACAMERAL INJ As Ordered ONE; +CETI10TA4 PO; +CYCLOPENTOLATE 1% OPHTH SOLN 2ML BTL OS SCH; +DOCU-153 PO; +FLUT12AE3 IH; +FURO20TA2 PO; +HYDR-3363 PO; +INVE156I IM; +LIDOCAINE 1% SDV 5ML VIAL As Ordered ONE; +METH-1164 PO; +MONT10TA97 PO; +MUCI1TAB16 PO; +NICO1DIS11 TD; +OFEV1CAP2 PO; +OFLOXACIN 0.3 % (OCUFLOX) OPTH SOL 5ML OS SCH; +PHENYLEPHRINE 2.5% OPHTH SOL 2ML OS SCH; +PRAZ2CAP PO; +PROA1AER2 INH; +PROPARACAINE 0.5% OPHTH SOL 15ML OS ONE; +THERTAB52 PO; +TRAZ300T2 PO; +TROPICAMIDE 1% OPHTH SOLN 15ML OS SCH
[2023-10-09] MEDS ORDERED: BUDESONIDE 0.5 MG/2 ML INHALATION SUSPENSION NEB ONE (09:00)
[2023-10-09] MEDS ORDERED: IPRATROPIUM 0.5MG/ALBUTEROL 2.5MG INH SOL UD 3ML (DUONEB) NEB ONE (09:00)
[2023-10-09] MEDS ORDERED: MIDAZOLAM INJ 2MG/2ML VIAL As Ordered ONE (09:05)
[2023-10-09] MEDS ORDERED: fentaNYL 100 MCG/2 ML INJECTION As Ordered ONE (09:05)
[2023-10-09 09:26] VITALS: BP 132/82; TEMP 98.3; O2SAT 93
== END 2023-10-09 09:41 | disposition home or self-care (01) ==
LOC: M SDC 07:14
PROVIDERS: ATTEND Ophthalmology
DX: H25.12 Age-related nuclear cataract, left eye (principal); J44.9 Chronic obstructive pulmonary disease, unspecified; J84.10 Pulmonary fibrosis, unspecified; G47.30 Sleep apnea, unspecified; R73.03 Prediabetes; F17.210 Nicotine dependence, cigarettes, uncomplicated; Z79.899 Other long term (current) drug therapy
CPT/HCPCS: 66984; J0697; J1097; J2250; J3010; V2632

== ENCOUNTER 2023-11-13 08:20 | Day surgery (SDC) | payer OTHER ==
[~2023-11-13] VITALS: Ht 172.7 cm; Wt 89.1 kg
[~2023-11-13 08:20] MED LIST changes: -CYCLOPENTOLATE 1% OPHTH SOLN 2ML BTL OS SCH; -DOCU-153 PO; -FLUT12AE3 IH; +FLUT12AE3 INH; +MIDAZOLAM INJ 2MG/2ML VIAL As Ordered ONE; -OFLOXACIN 0.3 % (OCUFLOX) OPTH SOL 5ML OS SCH; -PHENYLEPHRINE 2.5% OPHTH SOL 2ML OS SCH; -PROPARACAINE 0.5% OPHTH SOL 15ML OS ONE; +RISP-106 PO; -RISP-9 PO; +STOO100C30 PO; -TROPICAMIDE 1% OPHTH SOLN 15ML OS SCH; +fentaNYL 100 MCG/2 ML INJECTION As Ordered ONE
[2023-11-13] MEDS: ATROPINE SULFATE 1% OPHTH SOLN 2ML BTL OD SCH (09:10)
[2023-11-13] MEDS: PHENYLEPHRINE 2.5% OPHTH SOL 2ML OD SCH (09:10)
[2023-11-13] MEDS: TROPICAMIDE 1% OPHTH SOLN 15ML OD SCH (09:11)
[2023-11-13] MEDS: PROPARACAINE 0.5% OPHTH SOL 15ML OD ONE (09:11)
[2023-11-13] MEDS: OFLOXACIN 0.3 % (OCUFLOX) OPTH SOL 5ML OD SCH (09:11)
[2023-11-13 10:04] VITALS: BP 105/63; TEMP 97.8; O2SAT 97
== END 2023-11-13 10:20 | disposition home or self-care (01) ==
LOC: M SDC 08:20
PROVIDERS: ATTEND Ophthalmology
DX: H25.11 Age-related nuclear cataract, right eye (principal); J44.9 Chronic obstructive pulmonary disease, unspecified; R73.03 Prediabetes; G47.30 Sleep apnea, unspecified; Z79.899 Other long term (current) drug therapy; Z79.51 Long term (current) use of inhaled steroids; F17.210 Nicotine dependence, cigarettes, uncomplicated
CPT/HCPCS: 66984; J0697; J1097; J2250; J3010; V2632

== ENCOUNTER → 2024-01-28 | Outpatient (CLI) | payer OTHER ==
[~2024-01-28] MED LIST changes: -BSS IRR 500ML/OMIDRIA 4ML IRR BAG (OR ONLY) As Ordered ONE; -CEFUROXIME 1MG/0.1ML INTRACAMERAL INJ As Ordered ONE; -LIDOCAINE 1% SDV 5ML VIAL As Ordered ONE; -MIDAZOLAM INJ 2MG/2ML VIAL As Ordered ONE; -fentaNYL 100 MCG/2 ML INJECTION As Ordered ONE
== END ==
LOC: M PLARAD 12:37
PROVIDERS: ATTEND Internal Medicine Pulmonary Disease
DX: R91.8 Other nonspecific abnormal finding of lung field (principal)
CPT/HCPCS: 78815; A9552

== ENCOUNTER → 2024-02-08 | Outpatient (CLI) | payer OTHER | LOC: M RAD 15:50 | PROVIDERS: ATTEND General Practice | DX: C34.11 Malignant neoplasm of upper lobe, right bronchus or lung (principal) ==

== ENCOUNTER 2024-02-19 15:34 | Outpatient (RCR) | payer OTHER ==
[~2024-02-19 15:34] MED LIST changes: +LIDO15SO8 PO
== END 2024-03-09 ==
LOC: M ONCR 15:34
PROVIDERS: ATTEND General Practice
DX: Z51.0 Encounter for antineoplastic radiation therapy (principal); C34.11 Malignant neoplasm of upper lobe, right bronchus or lung

== ENCOUNTER → 2024-03-19 | Outpatient (CLI) | payer OTHER | LOC: M ONCR 13:43 | PROVIDERS: ATTEND General Practice | DX: R91.8 Other nonspecific abnormal finding of lung field (principal); M21.371 Foot drop, right foot; Z79.899 Other long term (current) drug therapy; Z92.3 Personal history of irradiation ==